=== PATIENT | female | born 1965 | race Caucasian/White ===

== ENCOUNTER → 2016-09-29 | Emergency (ER) | payer BC ==
[~2016-09-29] VITALS: Ht 177.8 cm; Wt 75.0 kg
[~2016-09-29] MED LIST: RT ADVAIR 228 DISKUS IH; ULTRAM 50MG TAB50 MG PO; VENTOLIN0.09 MG IH
[2016-09-29 12:38] VITALS: TEMP 98.2
[2016-09-29 13:18] LABS: BASO # 0.1 (0.0-0.2); BASO % 0.4 % (0.0-2.0); HEMATOCRIT 42.9 % (37.0-47.0); HEMOGLOBIN 15.1 g/dl (12.5-16.0); LYMPH # 1.9 (1.2-3.4); MEAN CELL VOLUME 92 fl (80.0-100.0); MEAN CORPUSCULAR HEMOGLOBIN 32 pg (27.0-31.0); MEAN CORPUSCULAR HGB CONC 35 g/dl (33.0-37.0); MEAN PLATELET VOLUME 9.1 fl (7.4-10.4); MONO # 0.7 (0.1-0.6); MONO % 6.2 % (1.7-9.3); PLATELET COUNT 264 K/mm3 (130-400); RED BLOOD COUNT 4.67 M/mm3 (4.10-5.30); REDCELL DISTRIBUTION WIDTH-CV 12.7 % (11.5-14.5); WHITE BLOOD COUNT 11.7 K/mm3 (4.8-10.8)
[2016-09-29 13:29] LABS: CALCIUM 9.4 mg/dL (8.4-10.2); CREATININE, serum 0.72 mg/dL (0.52-1.25)
[2016-09-29 16:14] VITALS: BP 128/68; PULSE 78
== END | disposition home or self-care (01) ==
LOC: COL.ER 12:32
PROVIDERS: Emergency Medicine
DX: S42.121A Displaced fracture of acromial process, right shoulder, initial encounter for closed fracture (principal); W10.9XXA Fall (on) (from) unspecified stairs and steps, initial encounter
CPT/HCPCS: J1885; J2175; J2405; J7030

== ENCOUNTER → 2017-05-08 | Outpatient (CLI) | payer BC | LOC: MC.RAD 08:45 | DX: Z12.31 Encounter for screening mammogram for malignant neoplasm of breast (principal) ==

== ENCOUNTER 2018-02-02 19:04 | Emergency (ER) | payer BC ==
[~2018-02-02] VITALS: Ht 177.8 cm; Wt 79.5 kg
[2018-02-02 19:22] VITALS: BP 140/67; TEMP 98.2
[2018-02-02 20:07] LABS: BASO # 0.1 (0.0-0.2); BASO % 0.8 % (0.0-2.0); EOS % 0.1 % (0-4.0); GRAN # 4.9 (1.4-6.5); GRAN % 61.8 % (42.2-75.2); HEMATOCRIT 42.5 % (37.0-47.0); HEMOGLOBIN 14.6 g/dl (12.5-16.0); LYMPH # 2.3 (1.2-3.4); LYMPH % 29.4 % (20.0-51.0); MEAN CELL VOLUME 94 fl (80.0-100.0); MEAN CORPUSCULAR HEMOGLOBIN 32 pg (27.0-31.0); MEAN CORPUSCULAR HGB CONC 34 g/dl (33.0-37.0); MONO # 0.6 (0.1-0.6); MONO % 7.5 % (1.7-9.3); PLATELET COUNT 261 K/mm3 (130-400); RED BLOOD COUNT 4.53 M/mm3 (4.10-5.30); REDCELL DISTRIBUTION WIDTH-CV 13.3 % (11.5-14.5)
[2018-02-02] MEDS ORDERED: ANORO IH (20:17)
[2018-02-02 20:22] LABS: ALANINE AMINOTRANSFERASE 37 U/L (9-52); ALKALINE PHOSPHATASE 72 U/L (50-136); ANION GAP 9 mmol/L (7-16); AST,SGOT 25 U/L (15-37); BILIRUBIN,TOTAL 0.4 mg/dL (0.0-1.0); BLOOD UREA NITROGEN 17 mg/dL (7-17); CARBON DIOXIDE 26 mmol/L (22-30); CHLORIDE 107 mmol/L (98-107); CREATININE, serum 0.74 mg/dL (0.52-1.25); GLUCOSE 112 mg/dL (74-106); POTASSIUM 3.5 mmol/L (3.4-5.0); SODIUM 142 mmol/L (137-145); TOTAL PROTEIN 6.9 gm/dL (6.4-8.2)
[2018-02-02 20:23] LABS: C-REACTIVE PROTEIN < 0.5 mg/dL (0.0-0.9)
[2018-02-02] MEDS ORDERED: DOXYCYCLINE HY100 MG PO (20:48)
[2018-02-02 20:56] VITALS: PULSE 84
== END 2018-02-02 20:56 | disposition home or self-care (01) ==
LOC: COL.ER 19:04
PROVIDERS: Physician Assistant
DX: L08.9 Local infection of the skin and subcutaneous tissue, unspecified (principal); F17.210 Nicotine dependence, cigarettes, uncomplicated; Z98.890 Other specified postprocedural states; Z98.51 Tubal ligation status

== ENCOUNTER → 2019-06-03 | Outpatient (CLI) | payer BC ==
[~2019-06-03] MED LIST changes: +ANORO IH; +DOXYCYCLINE HY100 MG PO
== END ==
LOC: MC.RAD 06:57
DX: Z12.31 Encounter for screening mammogram for malignant neoplasm of breast (principal)

== ENCOUNTER → 2020-07-26 | Outpatient (CLI) | payer BC | LOC: MC.RAD 06-28 08:45 | DX: Z12.31 Encounter for screening mammogram for malignant neoplasm of breast (principal) ==

== ENCOUNTER 2020-12-17 16:19 | Emergency (ER) | payer BC ==
[~2020-12-17] VITALS: Ht 177.8 cm; Wt 72.7 kg
[2020-12-17 16:27] VITALS: TEMP 97.9
[2020-12-17] MEDS ORDERED: PRAVACHOL10 MG PO (16:38)
[2020-12-17] MEDS ORDERED: TRELEGY ELLIPT1 EACH IH (16:38)
[2020-12-17] MEDS ORDERED: PRILOTC (16:38)
[2020-12-17] MEDS ORDERED: VIVLODEX10 MG PO (17:14)
[2020-12-17 17:17] VITALS: BP 124/78; PULSE 78
== END 2020-12-17 17:17 | disposition home or self-care (01) ==
LOC: COL.ER 16:19
DX: M79.672 Pain in left foot (principal); J44.9 Chronic obstructive pulmonary disease, unspecified; E11.9 Type 2 diabetes mellitus without complications; F17.210 Nicotine dependence, cigarettes, uncomplicated; Z88.6 Allergy status to analgesic agent

== ENCOUNTER → 2022-03-11 | Outpatient (CLI) | payer BC ==
[~2022-03-11] MED LIST changes: +PRAVACHOL10 MG PO; +PRILOTC; +TRELEGY ELLIPT1 EACH IH; +VIVLODEX10 MG PO
== END ==
LOC: COL.RAD 10:01
DX: J43.8 Other emphysema (principal); R91.1 Solitary pulmonary nodule
CPT/HCPCS: Q9967

== ENCOUNTER 2022-11-19 12:15 | Observation (INO) | payer BC ==
[~2022-11-19] VITALS: Ht 177.8 cm; Wt 69.0 kg
[2022-11-19 12:41] LABS: BASO % 0.3 % (0.0-2.0); GRAN # 10.3 K/mm3 (1.4-6.5); GRAN % 77.3 % (42.2-75.2); HEMATOCRIT 48.2 % (37.0-47.0); HEMOGLOBIN 16.6 g/dl (12.5-16.0); LYMPH # 2.1 K/mm3 (1.2-3.4); LYMPH % 16.2 % (20.0-51.0); MEAN CELL VOLUME 94 fl (80.0-100.0); MEAN CORPUSCULAR HEMOGLOBIN 32 pg (27-31); MEAN CORPUSCULAR HGB CONC 34 g/dl (33.0-37.0); MONO # 0.7 K/mm3 (0.1-0.6); MONO % 5.6 % (1.7-9.3); PLATELET COUNT 301 K/mm3 (130-400); RED BLOOD COUNT 5.15 M/mm3 (4.10-5.30); REDCELL DISTRIBUTION WIDTH-CV 12.8 % (11.5-14.5)
[2022-11-19 12:58] LABS: ALANINE AMINOTRANSFERASE 25 U/L (0-55); ALBUMIN 4.3 gm/dL (3.5-5.0); ALKALINE PHOSPHATASE 78 U/L (40-150); ANION GAP 14 mmol/L (7-16); AST,SGOT 23 U/L (5-34); BILIRUBIN,TOTAL 0.4 mg/dL (0.2-1.2); BLOOD UREA NITROGEN 20 mg/dL (10-20); CALCIUM 9.3 mg/dL (8.4-10.2); CARBON DIOXIDE 23 mmol/L (22-29); CHLORIDE 106 mmol/L (98-107); CREATININE, serum 0.76 mg/dL (0.57-1.11); GLUCOSE 97 mg/dL (70-99); POTASSIUM 3.9 mmol/L (3.5-4.5); SODIUM 143 mmol/L (136-145); TOTAL PROTEIN 7.8 gm/dL (6.2-8.1)
[2022-11-19 13:04] LABS: TROPONIN-I < 0.010 ng/mL (0.00-0.033)
[2022-11-19 15:40] VITALS: BP 140/60; PULSE 80; TEMP 98.1
[2022-11-19] MEDS ORDERED: OMEGA-3 1000 MG1 CAP PO (15:46)
[2022-11-19] MEDS ORDERED: B COMPLEX #11 TA1 PO (15:46)
[2022-11-19 19:40] VITALS: BP 124/66; PULSE 81; TEMP 98.5
[2022-11-19 23:12] VITALS: BP 142/75; PULSE 71; TEMP 98
[2022-11-20 03:18] VITALS: BP 113/47; PULSE 67; TEMP 97.9
[2022-11-20 07:02] LABS: CREATININE, serum 0.67 mg/dL (0.57-1.11); POTASSIUM 3.9 mmol/L (3.5-4.5)
[2022-11-20 07:07] LABS: BASO % 0.1 % (0.0-2.0); GRAN % 83.2 % (42.2-75.2); HEMATOCRIT 43.6 % (37.0-47.0); HEMOGLOBIN 15.1 g/dl (12.5-16.0); LYMPH # 1.4 K/mm3 (1.2-3.4); MEAN CELL VOLUME 93 fl (80.0-100.0); MEAN CORPUSCULAR HEMOGLOBIN 32 pg (27-31); MEAN CORPUSCULAR HGB CONC 35 g/dl (33.0-37.0); MONO # 0.5 K/mm3 (0.1-0.6); MONO % 4.3 % (1.7-9.3); PLATELET COUNT 292 K/mm3 (130-400); RED BLOOD COUNT 4.68 M/mm3 (4.10-5.30); REDCELL DISTRIBUTION WIDTH-CV 12.9 % (11.5-14.5)
[2022-11-20 07:10] VITALS: BP 108/55; PULSE 78; TEMP 98
--- NOTE | 2022-11-20 07:57 | NUR ---
0745 reassessed patient O2 saturation via pulse oximetry. Patient O2 saturation 90% on 2L of O2. Patient resting in high fowlers positon in bed with respirations at 14. Call light within reach.
--- NOTE | 2022-11-20 10:08 | NUR ---
Patient admitted to [facility] on 11-19-22. Sewing Machine Operator Semiautomatic met with PAtient and her at bedside to conduct Care Managment assessment and discuss discharge planning. Patient verrifies that she lives in [place], [place] with her , Brian P: [phone]. Patient reports to be established with PCP Dr. Patrick, established incurance carrier BC, and preferred pharmacy as [facility] in [place], [place]. Patient denies the use of O2, DME, and home health services prior to admission. Patient declines Advanced Directive paperwork at this time.
--- NOTE | 2022-11-20 10:34 | NUR ---
0700 student nurse recieved report from primary nurse Adelina. Discussed plan of care.
--- NOTE | 2022-11-20 10:38 | NUR ---
0715 performed shift assessment (see shift assessment). Patient appears in no distress and resting comfortably in high fowlers. Call light within reach. Student nurse.
[2022-11-20 11:21] VITALS: BP 131/66; PULSE 70; TEMP 97.7
--- NOTE | 2022-11-20 11:30 | NUR ---
Initial visit: Pt was resting and content with by her side. Pt has no needs right now. Naprapath will follow up as needed.
--- NOTE | 2022-11-20 11:47 | NUR ---
SHIFT ASSESSMENT COMPLETED AND MORNING MEDICATIONS ADMINISTERED PER ORDER. PATIENT IS ALERT AND ORIENTED X4. DENIES PAIN. LUNGS CTA. INDEPENDENT. DENIES ANY NEEDS. FAMILY AT BEDSIDE. CALL LIGHT WITHIN REACH.
[2022-11-20 16:45] VITALS: BP 117/50; PULSE 98; TEMP 97.8
--- NOTE | 2022-11-20 18:30 | NUR ---
PATIENT IN BED AT THIS TIME. CONTINUES ON IV DOXY. DENIES ANY NEEDS. ON 2L O2 VIA NC, TOLERATING WELL. CALL LIGHT WITHIN REACH.
[2022-11-20 19:52] VITALS: BP 117/67; PULSE 83; TEMP 98.2
[2022-11-20 23:25] VITALS: BP 114/62; PULSE 74; TEMP 98.3
[2022-11-21 03:11] VITALS: BP 116/58; PULSE 65; TEMP 98.3
[2022-11-21 06:31] LABS: BASO % 0.1 % (0.0-2.0); GRAN # 19.7 K/mm3 (1.4-6.5); GRAN % 88.2 % (42.2-75.2); HEMATOCRIT 44.2 % (37.0-47.0); HEMOGLOBIN 15.1 g/dl (12.5-16.0); LYMPH # 1.7 K/mm3 (1.2-3.4); LYMPH % 7.5 % (20.0-51.0); MEAN CELL VOLUME 94 fl (80.0-100.0); MEAN CORPUSCULAR HEMOGLOBIN 32 pg (27-31); MEAN CORPUSCULAR HGB CONC 34 g/dl (33.0-37.0); MEAN PLATELET VOLUME 9.2 fl (7.4-10.4); MONO # 0.8 K/mm3 (0.1-0.6); MONO % 3.4 % (1.7-9.3); PLATELET COUNT 334 K/mm3 (130-400); RED BLOOD COUNT 4.69 M/mm3 (4.10-5.30)
--- NOTE | 2022-11-21 06:35 | NUR ---
RESPIRATORY VIRUS PANEL COLLECTED AND GIVEN TO STORAGE BATTERY INSPECTOR FOR TRANSPORT TO LAB, PT REQUIRING 3L O2 NOW TO MAINTAIN SATS >90%. UP AD WILEY IN ROOM.
[2022-11-21 06:47] LABS: CALCIUM 8.8 mg/dL (8.4-10.2); CREATININE, serum 0.71 mg/dL (0.57-1.11); POTASSIUM 4.1 mmol/L (3.5-4.5)
--- NOTE | 2022-11-21 06:55 | NUR ---
left message for Dr Talley regarding critical WBC, no return call at this time, report given to SALOME Sahu she is aware.
[2022-11-21 06:59] VITALS: BP 115/64; PULSE 65; TEMP 98
[2022-11-21] MEDS ORDERED: DOXYCYCLINE HY100 MG PO (08:24)
[2022-11-21] MEDS ORDERED: MEDROL 4MG DOSPA4 MG PO (08:25)
--- NOTE | 2022-11-21 10:16 | NUR ---
SHIFT ASSESSMENT COMPLETED. PATIENT IS ALERT AND ORIENTED X4. DENIES PAIN. PLAN IS TO DISCHARGE TODAY. PENDING EXERCISE OXIMETRY. DENIES NEEDS AT THIS TIME. CALL LIGHT WITHIN REACH.
--- NOTE | 2022-11-21 11:08 | NUR ---
Discharge Plan: Patient intends to discharge home when medically cleared with transportation provided by her .
[2022-11-21 11:24] VITALS: BP 134/75; PULSE 76; TEMP 97.8
[2022-11-21] MEDS ORDERED: OXYGEN NASAL.CANN (12:16)
--- NOTE | 2022-11-21 15:21 | NUR ---
Vehicle Upholsterer met with patient who is set to discharge today. Patient will need home oxygen set up. SW reviewed DME options and patient selected [facility]. SW contacted [facility] and faxed referral with discharge orders. Marcie at [facility] advised equipment will be delivered to patient's room. Discharge Plan: Home with oxygen
[2022-11-21 16:00] VITALS: BP 123/65; PULSE 71; TEMP 98
--- NOTE | 2022-11-21 19:06 | NUR ---
PATIENT DISCHARGED PER ORDER. IV TO LEFT FOREARM REMOVED WITH CATHETER INTACT, NO BLEEDING NOTED, GAUZE DRESSING APPLIED. DISCHARGE EDUCATION PROVIDED ON MEDICATIONS, FOLLOW UPS, AND DIAGNOSIS- ALL QUESTIONS ANSWERED. PATIENT SENT HOME WITH HOME O2. DENIES FURTHER NEEDS. ESCORTED OUT BY [facility], [facility].
== END 2022-11-21 18:20 | disposition home or self-care (01) ==
LOC: COL.ER 12:15 → MEDICAL 14:47
PROVIDERS: Nurse Practitioner; Physician Assistant; ADMIT Internal Medicine
DX: G47.33 Obstructive sleep apnea (adult) (pediatric) (principal); J96.01 Acute respiratory failure with hypoxia; J44.1 Chronic obstructive pulmonary disease with (acute) exacerbation; Z86.16 Personal history of COVID-19; D72.829 Elevated white blood cell count, unspecified; R79.89 Other specified abnormal findings of blood chemistry; K21.9 Gastro-esophageal reflux disease without esophagitis; E11.9 Type 2 diabetes mellitus without complications; F17.210 Nicotine dependence, cigarettes, uncomplicated; Z20.822 Contact with and (suspected) exposure to COVID-19; E78.5 Hyperlipidemia, unspecified; Z28.310 Unvaccinated for COVID-19; Z28.9 Immunization not carried out for unspecified reason; Z79.899 Other long term (current) drug therapy
CPT/HCPCS: G0378; J0696; J2920; J2930; Q9967

== ENCOUNTER → 2022-12-26 | Outpatient (CLI) | payer BC ==
[~2022-12-26] MED LIST changes: +B COMPLEX #11 TA1 PO; +MEDROL 4MG DOSPA4 MG PO; +OMEGA-3 1000 MG1 CAP PO; +OXYGEN NASAL.CANN
== END ==
LOC: COL.RAD 10:36
DX: J18.9 Pneumonia, unspecified organism (principal)

== ENCOUNTER → 2023-12-01 | Outpatient (CLI) | payer BC ==
[~2023-12-01] MED LIST changes: +AMOXICILLIN 8751 TAB PO; +Iohexol 300 - 100 ML VIAL IV ONE; +NS 100 ML IV SCH; +ZOFRAN ODT4 MG PO
== END ==
LOC: COL.RAD 07:56
DX: R91.8 Other nonspecific abnormal finding of lung field (principal); F17.200 Nicotine dependence, unspecified, uncomplicated
CPT/HCPCS: Q9967